=== PATIENT | male | born 1975 | race American Indian/Alaskan Native ===

== ENCOUNTER 2017-10-04 10:01 | Emergency (ER) | payer OTHER ==
[2017-10-04 10:09] VITALS: BMI 27.7
[2017-10-04 10:13] VITALS: RESP 18; TEMP 98
--- NOTE | 2017-10-04 10:40 | ED PDOC ---
Arrival/HPI - History of Present Illness Time/Duration: < week Symptom Onset: Gradual Symptom Course: Improving Quality: Burning Severity Level: 4 <Alphonse Gannon - Last Filed: 10/04/17 13:07> <Azam Hernandez - Last Filed: 10/04/17 18:24> - General Chief Complaint: Cough, Cold, Congestion Time Seen by Provider: 10/04/17 10:08 - History of Present Illness Narrative History of Present Illness (Text): Patient is a 42 year old male with a past medical history of hypertension who presents to the emergency department for evaluation and treatment of chest discomfort, productive cough, runny nose which began 2 days ago after a family vacation in [place]. States his son has similar symptoms. Took dayquil at home with minimal improvement in symptoms. Chest discomfort remains localized to the left parasternal region. Characterized as being a burning sensation. Rated a 3/10. Exacerbates when coughing. Denies fever, chills, SOB, abdominal pain, nausea, vomiting, diarrhea, constipation, and urinary symptoms. 10/04/17 10:28 (Alphonse Gannon) Past Medical History - Provider Review Nursing Documentation Reviewed: Yes - Cardiac Hx Cardiac Disorders: Yes Hx Hypertension: Yes - Pulmonary Hx Respiratory Disorders: No - Neurological Hx Neurological Disorder: No - HEENT Hx HEENT Disorder: No - Renal Hx Renal Disorder: No - Endocrine/Metabolic Hx Endocrine Disorders: No - Hematological/Oncological Hx Blood Disorders: No - Integumentary Hx Dermatological Disorder: No - Musculoskeletal/Rheumatological Hx Musculoskeletal Disorders: No - Gastrointestinal Hx Gastrointestinal Disorders: No - Genitourinary/Gynecological Hx Genitourinary Disorders: No - Psychiatric Hx Psychophysiologic Disorder: No Hx Substance Use: No - Anesthesia Hx Anesthesia: Yes (dental) Hx Anesthesia Reactions: No <Alphonse Gannon - Last Filed: 10/04/17 13:07> Family/Social History - Physician Review Nursing Documentation Reviewed: Yes Family/Social History: Unknown Family HX Smoking Status: Never Smoked Hx Alcohol Use: Yes Frequency of alcohol use: Socially Hx Substance Use: No <Alphonse Gannon - Last Filed: 10/04/17 13:07> Allergies/Home Meds <Alphonse Gannon - Last Filed: 10/04/17 13:07> <Azam Hernandez - Last Filed: 10/04/17 18:24> Allergies/Adverse Reactions: Allergies No Known Allergies Allergy (Verified 10/04/17 10:15) Review of Systems - Review of Systems Constitutional: Normal Eyes: Normal ENT: Rhinorrhea Respiratory: Normal Cardiovascular: Chest Pain Gastrointestinal: Normal Genitourinary Male: Normal Musculoskeletal: Normal Skin: Normal Neurological: Normal Endocrine: Normal Hemo/Lymphatic: Normal Psychiatric: Normal <[email or web address] - Last Filed: 10/04/17 13:07> Physical Exam - Physical Exam Physical Exam Limitations: Altered Mental Status, Clinical Condition, Intoxication, Psychotic, Uncooperative, Other Temperature: Afebrile Blood Pressure: Normal Pulse: Tachycardic Respiratory Rate: Normal Appearance: Positive for: Well-Appearing, Non-Toxic, Comfortable Pain Distress: None Mental Status: Positive for: Alert and Oriented X 3 - Systems Exam Head: Present: Atraumatic, Normocephalic Pupils: Present: PERRL Extroacular Muscles: Present: EOMI Conjunctiva: Present: Normal Mouth: Present: Moist Mucous Membranes Neck: Present: Normal Range of Motion Respiratory/Chest: Present: Clear to Auscultation, Good Air Exchange. No: Respiratory Distress, Accessory Muscle Use Cardiovascular: Present: Regular Rate and Rhythm, Normal S1, S2. No: Murmurs Abdomen: No: Tenderness, Distention, Peritoneal Signs Back: Present: Normal Inspection Upper Extremity: Present: Normal Inspection. No: Cyanosis, Edema Lower Extremity: Present: Normal Inspection. No: Edema Neurological: Present: GCS=15, CN II-XII Intact, Speech Normal Skin: Present: Warm, Dry, Normal Color. No: Rashes Psychiatric: Present: Alert, Oriented x 3, Normal Insight, Normal Concentration <JagdeepAlphonse - Last Filed: 10/04/17 13:07> Vital Signs Temp Pulse Resp BP Pulse Ox 10/04/17 13:14 98.0 F 89 18 118/74 100 10/04/17 13:00 89 18 118/74 98 10/04/17 11:19 98 H 18 121/79 98 10/04/17 10:08 98.0 F 111 H 18 123/86 97 Medical Decision Making - EKG Interpretation Interpreted by ED Physician: Yes Type: 12 lead EKG <Alphonse Gannon - Last Filed: 10/04/17 13:07> <Azam Hernandez - Last Filed: 10/04/17 18:24> ED Course and Treatment: Assessment and Plan: Patient is a 42 year old male with a past medical history of hypertension who presents to the emergency department for evaluation and treatment of chest discomfort, productive cough, and runny nose. Chest Discomfort likely msk in nature URI 10/04/17 10:42 - CBC, CMP, Mag, Phos - cardiac isoenzymes - EKG - CXR 10/04/17 12:20 - EKG reviewed and appreciated- no acute ST T wave changes - CXR- no active cardiopulmonary process 10/04/17 13:07 - patient vitals stable, labs WNL - ok for discharge to home (Alphonse Gannon) 10/04/17 10:59 42 year old male presents to the Emergency department for chest discomfort, productive cough, and runny nose since 2 days. In agreement with resident note, which includes further HPI details. Patient was seen and evaluated with resident, came up with plan and treatment together. Patient with history of cough and nasal congestion over past 2-3 days. He has chest discomfort WITH COUGHING and it is palpable. No edema or erythema or deformity noted on chest wall. EKG reveals NSR with early repolarization. Patient's chest pain for current presentation not consistent with acute cardiac process based on history and exam. CXR with no large infiltrate or effusion. He is afebrile, no wheezing, no hypoxia. No calf pain or pleuritic discomfort. Nonsmoker. Suspect URI, bronchitis. Will d/c with abx, f/u with pmd, clinic. Limitations of imaging and labs studies reviewed with patient and stressed need for close follow-up. (Azam Hernandez) - Lab Interpretations Lab Results: 10/04/17 11:40 10/04/17 11:40 Lab Results 10/04/17 11:40: Sodium 141, Potassium 4.5, Chloride 100, Carbon Dioxide 30, Anion Gap 15, BUN 9, Creatinine 0.9, Est GFR ( Amer) > 60, Est GFR (Non- Af Amer) > 60, Random Glucose 148 H, Calcium 8.9, Magnesium 1.8, Total Bilirubin 0.5, AST 27, ALT 38, Alkaline Phosphatase 71, Lactate Dehydrogenase 505, Total Creatine Kinase 232 H, CK-MB (CK-2) 1.4, CK-MB (CK-2) % Cancelled, Troponin I < 0.01, Total Protein 6.8, Albumin 3.9, Globulin 2.8, Albumin/ Globulin Ratio 1.4 10/04/17 11:40: WBC 6.9, RBC 5.66, Hgb 16.7, Hct 47.8, MCV 84.5, MCH 29.5, MCHC 34.9, RDW 12.5, Plt Count 209, MPV 10.6, Gran % 61.8, Lymph % (Auto) 20.6 L, Aurora % (Auto) 11.4 H, Eos % (Auto) 5.6 H, Baso % (Auto) 0.6, Gran # 4.28, Lymph # (Auto) 1.4, Aurora # (Auto) 0.8 H, Eos # (Auto) 0.4, Baso # (Auto) 0.04 - RAD Interpretation Narrative RAD Interpretations (Text): HISTORY: chest pain COMPARISON: No prior. TECHNIQUE: Chest PA and lateral FINDINGS: LUNGS: No active pulmonary disease. PLEURA: No significant pleural effusion identified. No pneumothorax apparent. CARDIOVASCULAR: Normal. OSSEOUS STRUCTURES: No significant abnormalities. VISUALIZED UPPER ABDOMEN: Normal. OTHER FINDINGS: None. IMPRESSION: No active disease 10/04/17 13:07 (Alphonse Gannon) Radiology Orders: 10/04/17 10:35 CHEST TWO VIEWS (PA/LAT) [RAD] Stat - EKG Interpretation EKG Interpretation (Text): NSR HR 90 bpm, Qtc 398 Early Repolarization 10/04/17 11:19 (Alphonse Gannon) <Alphonse Gannon - Last Filed: 10/04/17 13:07> - PA / OUTBOARD [employer]ORBO[employer] RIGGER / Resident Statement MD/ has reviewed & agrees with the documentation as recorded. MD/ has examined the patient and agrees with the treatment plan. - Scribe Statement The provider has reviewed the documentation as recorded by the Scribe <Azam Hernandez - Last Filed: 10/04/17 18:24> - Scribe Statement Murray Jackson. All medical record entries made by the Scribe were at my direction and personally dictated by me. I have reviewed the chart and agree that the record accurately reflects my personal performance of the history, physical exam, medical decision making, and the department course for this patient. I have also personally directed, reviewed, and agree with the discharge instructions and disposition. (Azam Hernandez) Disposition/Present on Arrival - Present on Arrival Any Indicators Present on Arrival: No History of DVT/PE: No History of Uncontrolled Diabetes: No Urinary Catheter: No History of Decub. Ulcer: No History Surgical Site Infection Following: None - Disposition Have Diagnosis and Disposition been Completed?: Yes Disposition Time: 13:10 Patient Plan: Discharge <Alphonse Gannon - Last Filed: 10/04/17 13:07> <Azam Hernandez - Last Filed: 10/04/17 18:24> - Disposition Diagnosis: Upper respiratory infection, Bronchitis Disposition: HOME/ ROUTINE Condition: GOOD Discharge Instructions (ExitCare): Viral Upper Respiratory Infection, Adult (DC ) Additional Instructions: CIRILO SÁNCHEZ, thank you for letting us take care of you today. Your provider was Azam Hernandez MD and you were treated for CHEST PAIN. The emergency medical care you received today was directed at your acute symptoms. If you were prescribed any medication, please fill it and take as directed. It may take several days for your symptoms to resolve. Return to the Emergency Department if your symptoms worsen, do not improve, or if you have any other problems. Please contact your doctor or call one of the physicians/clinics you have been referred to that are listed on the Patient Visit Information form that is included in your discharge packet. Bring any paperwork you were given at discharge with you along with any medications you are taking to your follow up visit. Our treatment cannot replace ongoing medical care by a primary care provider outside of the emergency department. Thank you for allowing the [facility] team to be part of your care today. If you had an X-Ray or CT scan: A Radiologist will review the ED reading if any change in treatment is needed we will contact you. If you had a blood, urine, or wound culture: It will take several days for the results, if any change in treatment is needed we will contact you. If you had an STI test: It will take 48 hours for the results. Please call after 1 week if you have not heard back. Prescriptions: Azithromycin 250 mg PO DAILY 4 Days tablet Azithromycin [Zithromax] 500 mg PO ONCE 1 Days tablet Referrals: [facility] [Outside] - Follow up with primary [facility] [Outside] - Follow up with primary Forms: [employer] ([employer])
[2017-10-04 11:54] LABS: BASO # 0.04 K/mm3 (0.0-2.0); BASO % 0.6 % (0.0-3.0); EOS # 0.4 (0.0-0.7); EOS % 5.6 % (1.5-5.0); GRAN # 4.28 (1.4-6.5); GRAN % 61.8 % (50.0-68.0); HEMOGLOBIN 16.7 g/dL (14.0-18.0); LYMPH # 1.4 (1.2-3.4); LYMPH % 20.6 % (22.0-35.0); MEAN CELL VOLUME 84.5 fl (80.0-105.0); MEAN CORPUSCULAR HEMOGLOBIN 29.5 pg (25.0-35.0); MEAN CORPUSCULAR HGB CONC 34.9 g/dl (31.0-37.0); MEAN PLATELET VOLUME 10.6 fl (7.0-11.0); MONO # 0.8 (0.1-0.6); MONO % 11.4 % (1.0-6.0); RBC 5.66 10^6/uL (3.5-6.1); RED CELL DISTRIBUTION WIDTH 12.5 % (11.5-14.5); WHITE BLOOD COUNT 6.9 10^3/ul (4.5-11.0)
[2017-10-04 12:06] LABS: ALB/GLOB RATIO 1.4 (1.1-1.8); ALBUMIN 3.9 g/dL (3.0-4.8); ALT/SGPT 38 U/L (7-56); AST/SGOT 27 U/L (17-59); BLOOD UREA NITROGEN 9 mg/dL (7-21); CALCIUM 8.9 mg/dL (8.4-10.5); GFR AFRICAN-AMERICAN > 60; GFR NON-AFRICAN AMERICAN > 60
[2017-10-04 12:16] LABS: TROPONIN I < 0.01 ng/mL
[2017-10-04 12:31] LABS: CK-MB 1.4 ng/mL (0.0-3.6)
--- NOTE | 2017-10-04 12:38 | RAD ---
HISTORY: chest pain COMPARISON: No prior. TECHNIQUE: Chest PA and lateral FINDINGS: LUNGS: No active pulmonary disease. PLEURA: No significant pleural effusion identified. No pneumothorax apparent. CARDIOVASCULAR: Normal. OSSEOUS STRUCTURES: No significant abnormalities. VISUALIZED UPPER ABDOMEN: Normal. OTHER FINDINGS: None. IMPRESSION: No active disease.
[2017-10-04 13:03] VITALS: BP 118/74; PULSE 89
[2017-10-04 13:15] VITALS: O2SAT 100
--- NOTE | 2017-10-05 13:50 | CARD ---
APPROVED REPORT EKG Measurement Heart [id number] <Conclusion> Normal sinus rhythm Early repolarization Normal ECG
== END 2017-10-04 13:27 | disposition home or self-care (01) ==
LOC: ED 10:01 → MERGE 10:01 → ED 13:27
DX: J06.9 Acute upper respiratory infection, unspecified (principal); J40 Bronchitis, not specified as acute or chronic; I10 Essential (primary) hypertension